=== PATIENT | male | born 1970 | race Caucasian/White ===

== ENCOUNTER 2018-12-28 08:57 | Outpatient (CLI) | payer BC, SELFPAY ==
[2018-12-28 17:07] LABS: Calculated LDL 134; Cholesterol 196 mg/dL (50-200); Glucose 78 mg/dL (70-100); HDL Cholesterol 51 mg/dL (40-60); Triglyceride 58 mg/dL (30-150)
== END 2018-12-28 09:17 ==
PROVIDERS: PCP Emergency Medicine; Visit Provider Family Medicine
DX: Z00.00 Encounter for general adult medical examination without abnormal findings (principal); Z13.220 Encounter for screening for lipoid disorders; Z13.1 Encounter for screening for diabetes mellitus
CPT/HCPCS: 36415; 80061; 82947; 83721

== ENCOUNTER 2019-01-16 14:12 | Outpatient (CLI) | payer OTHER, SELFPAY ==
--- NOTE | 2019-01-16 15:20 | DI.RAD_ITS ---
SYMPTOMS/DIAGNOSIS: ACUTE BILATERAL LOW BACK PAIN, M54.5, PAIN OVERNIGHT GOES AWAY DURING THE DAY, STARTED LAST FEB AFTER PHYSICAL LUMBOSACRAL SPINE: Five views were obtained. There is a moderate left convex lumbar scoliosis. SI joints appear fairly well maintained. Moderate hypertrophic degenerative changes noted involving vertebral endplates and facet joints throughout the lumbar region. Disc space loss noted at L3-4, L4-5 and L5-S1 with probable anterior fusion at L5-S1. There is no evidence of a fracture. CONCLUSION: Degenerative changes, no evidence of fracture.
== END 2019-01-16 14:32 ==
PROVIDERS: PCP Emergency Medicine; Visit Provider Emergency Medicine
DX: M54.5 Low back pain (principal); M51.37 Other intervertebral disc degeneration, lumbosacral region
CPT/HCPCS: 72110

== ENCOUNTER 2019-10-09 08:20 | Outpatient (CLI) | payer OTHER, SELFPAY ==
[2019-10-10 19:42] LABS: SARS-CoV-2 RNA Undetected (Undetected); SARS-CoV-2 Specimen Source Nasopharynx
== END 2019-10-09 08:40 ==
PROVIDERS: PCP Emergency Medicine; Visit Provider Family Medicine
DX: Z20.828 Contact with and (suspected) exposure to other viral communicable diseases (principal)
CPT/HCPCS: U0003

== ENCOUNTER 2019-10-16 13:37 | Emergency (ER) | payer OTHER, SELFPAY ==
[2019-10-16 13:45] VITALS: BP 158/96; PULSE 88; RESP 18; TEMP 37; O2SAT 96
[2019-10-16 13:55] VITALS: RESP 16
--- NOTE | 2019-10-16 14:15 | DI.RAD_ITS ---
EXAM: XR PORTABLE CHEST AP CLINICAL HISTORY: COugh, chest discomfort TECHNIQUE: COMPARISON: No exams were available for comparison FINDINGS: Portable AP chest was obtained. Cardiac size is within normal limits. No gross consolidation seen. No pleural effusion identified on this frontal film. There is question of very faint hazy radiodensity overlying the left mid to upper lung field, questio n very subtle increased radiodensity also present right mid to upper lung field. Faint infiltrate is not excluded and I cannot exclude the possibility of early pneumonia in this patient. If clinically appropriate follow-up films or CT may be obtained. IMPRESSION:
--- NOTE | 2019-10-16 14:16 | W.ED.GENAD ---
Discharge Plan Disposition Patient Disposition: HOME Condition: Stable Discharge Details Chief Complaint: SOB Clinical Impression: Shortness of breath Primary Care Provider: Héctor Orta ED Provider: Enzo Noland Home Meds and New Rx's Prescriptions: New prednisone 20 mg tablet 60 mg PO DAILY 4 Days Qty: 12 RF: 0 Continued alprazolam [Xanax] 0.5 MG tablet 0.5 mg PO DAILY PRNQty: 30 RF: 1 albuterol sulfate [ProAir HFA] 8.5 GM HFA aerosol inhaler 1 - 2 puff Inhalation Q4H PRN Qty: 2 RF: 6 Ketoconazole 15 GM CREAM..G. 15 gm Topical DAILY Qty: 3 RF: 3 Discharge Instructions Instructions: Dyspnea (ED) Additional Instructions: Your cat scan was normal, no pneumonia or other concerning findings and your lab work did not show any acute findings follow up with your primary care provider within a week especially if symptoms continue return to the emergency department if you feel more ill, have chest pain or pressure, or shortness of breath that is worsening Medical Decision Making <Reese Sandoval MD - Last Filed: 10/16/19 15:04> 48-year-old healthy male presents with 3 weeks of cough, congestion, intermittent episodes of chest pain and some subjective shortness of breath. He has been followed as an outpatient and had a negative coronavirus screening performed with results on October 08. He also was treated with a course of doxycycline which he is completed. He states he was beginning to feel better and then had recurrence of chest discomfort over the past day and a half for which she was referred to the ER. He arrives with unremarkable vital signs, 98% sat on room air. He is anxious and noted to have blood pressures approximately 140-150/90. Given the negative coronavirus test, I would consider his differential diagnosis to include pneumonitis, pneumonia, post bronchitic irritation, pleurisy, must exclude PE. Patient had IV access established, screening labs obtained and he was referred for chest x-ray and EKG. labs are reassuring. X-ray reveals fluffy infiltrate in the upper lung anne per Dr. Mcknight. We will obtain CT imaging in order to ascertain underlying etiology. Please see Dr. Noland's note. ECG Data Attestation: I personally reviewed and interpreted this ECG (s) as follows: Interpretation: Normal sinus rhythm with a rate of 73, the QRS is narrow, there is no ST segment elevation present. The QTC is 392. <Enzo Noland MD - Last Filed: 10/16/19 16:13> PT's CT shows no acute findings per Dr. Jackson and he remains hd stable. Do not feel abx indicated. Given his continued cough and shortness of breath will trial short course of steroids. ADvised to f/u with pcp and return precautions given Imaging Data Radiologic Study: Attestation: I personally reviewed and interpreted this imaging study as follows: Imaging: CT Scan Radiologist's impression: no acute findings per Dr. Jackson HPI <Reese Sandoval MD - Last Filed: 10/16/19 15:04> General Mode of arrival: ambulatory. Date/Time Provider Initiated Documentation: 10/16/19 13:38. Limitations to Documentation: no limitations. Information obtained by: patient. History of Present Illness 48 year old M presents to the emergency department with the chief complaint of Cough and chest discomfort for 3 weeks, described as moderate, Quality is described as dull, and is localized to the chest. Patient reports no radiation. Patient started experiencing this week(s) and it has been intermittent. No relieving factors improve symptom(s), No exacerbating factors reported . Patient notes cough and fever/chills. Patient did receive the following treatments prior to arrival, other (Finished a course of doxycycline) Related Data Home Medications Medication Instructions Recorded Confirmed albuterol sulfate [ProAir HFA] 1 - 2 puff INHALATION Q4H PRN #2 12/29/17 10/16/19 inhaler alprazolam [Xanax] 0.5 mg PO DAILY PRN #30 tab 12/29/17 10/16/19 prednisone 60 mg PO DAILY 4 Days #12 tab 10/16/19 Previous Rx's Medication Instructions Recorded albuterol sulfate [ProAir HFA] 1 - 2 puff INHALATION Q4H PRN #2 12/29/17 inhaler prednisone 60 mg PO DAILY 4 Days #12 tab 10/16/19 Allergies Allergy/AdvReac Type Severity Reaction Status Date / Time No Known Allergies Allergy Verified 10/16/19 13:55 General Stated Complaint: SOB GRISEL: 3 Review of Systems <Reese Sandoval MD - Last Filed: 10/16/19 15:04> Narrative: Finished a course of doxycycline. No definitive sick contacts. No recent travel. No leg pain or swelling. See HPI. 8 systems reviewed and otherwise negative PFSH <Reese Sandoval MD - Last Filed: 10/16/19 15:04> Surgical History (Updated 01/04/19 @ 11:03 by Héctor Orta DO) Tonsillectomy Vasectomy Family History Mother Depression Asthma Father Essential hypertension Hyperlipidemia Brother No problems noted. Brother Depression Asthma Maternal Grandfather , 72 Diabetes Heart disease Paternal Grandfather , 80 Diabetes Heart disease Maternal Grandmother , 99 Essential hypertension Breast cancer Paternal Grandmother , 88 Essential hypertension Heart disease Hyperlipidemia FAMILY HISTORY Migraine Anxiety Stroke Macular degeneration Colon cancer Bladder cancer Son No problems noted. Daughter No problems noted. Social History Smoking/Tobacco Use Status: Former Tobacco Use Quit Date: 07/12/03 Second Hand Exposure: Yes Alcohol Intake: current Alcohol Intake frequency: 0-2 drinks per day Alcohol type: beer Drug use: Occasionally Substance use type: marijuana Caregiver/Support person: No Household members: spouse and children Housing: house Communication Needs: None Do you need help understanding health information?: Never Pets and animals: Yes Pets and animals: dog(s) Sexually active: Yes Do you think of yourself as: straight/heterosexual Current gender identity: male What is your relationship status?: How often do you talk on the phone with friends or family?: three or more times per week How often do you get together with friends or relatives?: three or more times per week How often do you attend restorationist or christian services?: 1-3 times per year Do you belong to any clubs or organized social groups?: yes Panel score (0-1 are the most socially isolated patients): 3 What type of physical activity do you participate in: other Details: rowing and running Duration: 15-30 minutes/day Frequency: 5-6 times per week Isabella/Quaker: none Special isabella needs: No Seatbelt use: always Helmet use: Yes Helmet use: always Drive intox or ride w/intox delivery driver/supervisor: No Exam <Reese Sandoval MD - Last Filed: 10/16/19 15:04> Narrative Exam Narrative: GEN: awake, alert, oriented 3. Pleasant, well groomed, interactive. HEAD: Normocephalic, atraumatic ENT: Mucous membranes moist, oropharynx unremarkable, External ear exam unremarkable EYES: PERRL, EOMI NECK: Full ROM, no JILL, no menigismus CHEST/RESP: Nontender, clear to auscultation bilateral, no wheeze/rhonchi/rales CARDIOVASCULAR: RRR, no murmur, rub luigi. 2+ Rad pulse bilateral ABDOMEN: Soft, nontender, no mass. +Bowel sounds EXT: Full ROM, no edema, no rash Neuro: Grossly normal neurologic exam, conversant, interactive. Psych: Speech fluent, thoughts congruent, affect anxious Course <Reese Sandoval MD - Last Filed: 10/16/19 15:04> Vital Signs Vital signs: Vital Signs Temperature 37.0 C 10/16/19 13:45 Pulse 88 10/16/19 13:45 Respiratory Rate 18 10/16/19 13:45 Blood Pressure 158/96 H 10/16/19 13:45 Pulse Oximetry 96 10/16/19 13:45 Temperature 37.0 C 10/16/19 13:45 Temperature Source Skin 10/16/19 13:45 Pulse 88 10/16/19 13:45 Respiratory Rate 16 10/16/19 13:55 Respiratory Effort Non-Labored 10/16/19 13:55 Respiratory Depth Normal 10/16/19 13:55 Respiratory Pattern Normal 10/16/19 13:55 Blood Pressure 158/96 H 10/16/19 13:45 Blood Pressure Position Sitting 10/16/19 13:45 Pulse Oximetry 96 10/16/19 13:45 Oxygen Delivery Method Room Air 10/16/19 13:45 Oxygen Flow Rate 0 10/16/19 13:45 Pain Level 5 10/16/19 13:55 Sign Out <Reese Sandoval MD - Last Filed: 10/16/19 15:04> Sign Out Data: Sign Out Comment: Follow-up CT imaging Last updated by Reese Sandoval MD at 10/16/19 15:03
[2019-10-16 14:28] LABS: Abs Immature Grans 0.04 k/cumm (0.0-0.09); Absolute Basophil Count 0.03 k/cumm (0.0-0.2); Absolute Eosinophil Count 0.02 k/cumm (0.0-0.7); Absolute Lymphocyte Count 1.27 k/cumm (1.2-3.4); Absolute Monocyte Count 0.48 k/cumm (0.11-0.7); Absolute Neutrophil Count 3.84 k/cumm (1.2-6.7); Basophils % 0.5; Eosinophils % 0.4; HCT 45.9 % (40.0-50.0); Immature Grans % 0.7 %; Lymphocytes % 22.4; Mean Corp. HGB Concentration 34.9 g/dL (32.0-36.0); Mean Corpuscular Hemoglobin 30.7 pg (27.0-33.0); Mean Corpuscular Volume 87.9 fL (80-95); Mean Platelet Volume 10.7 fL (8.0-11.0); Monocytes % 8.5; Neutrophils % 67.5; Platelet Count 223 x1000/uL (130-400); RBC 5.22 m/cumm (4.50-6.00); RBC Distribution Width 12.6 % (11.8-14.1); White Blood Cell Count 5.68 k/cumm (4.4-10.8)
[2019-10-16 14:41] LABS: ALT 43 U/L (16-63); AST 19 U/L (15-37); Albumin 4.2 g/dL (3.4-5.0); Alkaline Phosphatase 49 U/L (46-116); Anion Gap 8.3 mmol/L (3-11); BUN 12 mg/dL (7-18); Bilirubin, Total 0.5 mg/dL (0.2-1.0); CO2 27.7 mmol/L (21.0-32.0); CREATININE 1.09 mg/dL (0.70-1.30); Calcium 9.2 mg/dL (8.5-10.1); Chloride 105 mmol/L (98-107); Glucose 98 mg/dL (74-106); Magnesium 2.1 mg/dL (1.8-2.4); Potassium 3.8 mmol/L (3.5-5.1); Sodium 141 mmol/L (136-145); Total Protein 7.4 g/dL (6.4-8.2)
[2019-10-16 14:42] LABS: Troponin I < 0.05 ng/Ml (<0.06)
[2019-10-16 15:09] LABS: D-Dimer 170 ng/mlFEU (<500)
--- NOTE | 2019-10-16 15:15 | DI.CT_ITS ---
EXAM: CT CHEST W CLINICAL HISTORY: persistent cough, question upper infiltrates on XR TECHNIQUE: COMPARISON: No exams were available for comparison FINDINGS: CT examination of the chest was performed with intravenous infusion of 100 cc of Omnipaque 350. The lungs are clear. No pulmonary embolic disease. No thoracic aortic abnormality. No mediastinal or h ilar adenopathy. No pleural effusion or pneumothorax. Images obtained through the upper abdomen show unremarkable appearance of visualized portions of live r, spleen, adrenals, kidneys, and pancreas. IMPRESSION: No evidence of acute intrapulmonary process.
[2019-10-16] MEDS: Omnipaque 350 MG/ML 100 ML BTL IJ (15:30)
[2019-10-16] MEDS: Normal Saline - Diluent 50 ML VIAL IV ×2 (15:31→15:51)
[2019-10-16 16:27] VITALS: BP 158/96; PULSE 88; RESP 16; TEMP 37; O2SAT 96
== END 2019-10-16 16:23 | disposition home or self-care (01) ==
PROVIDERS: Emergency Medicine; Emergency Provider Emergency Medicine; PCP Emergency Medicine
DX: R06.02 Shortness of breath (principal); R07.89 Other chest pain; R09.89 Other specified symptoms and signs involving the circulatory and respiratory systems
CPT/HCPCS: 80053; 93005; 99285; 71045; 71260; 83735; 84484; 85025; 85379; 93010; 99284; J3490

== ENCOUNTER 2019-11-07 00:07 | Outpatient (CLI) | payer OTHER, SELFPAY ==
--- NOTE | 2019-11-07 07:37 | DI.US_ITS ---
APPROVED REPORT EXAM: Comprehensive 2D, Doppler, and color-flow Echocardiogram Patient Location: Out-Patient Vocational Nurse: Esther Nix RDCS (AE) Indications: Dyspnea on exertion, Ventricular arrhythmia Other Information Study Quality: Good Conclusion Left Ventricle : The left ventricle is normal size. The left ventricular systolic function is normal. The left ventricular ejection fraction is within the normal range. There is normal left ventricular wall thickness. There is normal LV segmental wall motion. The left ventricular diastolic function is normal. LVEF is 55-60%. Right Ventricle : The right ventricle is normal size. The right ventricular systolic function is norm al. The RVSP is 18 mmHg. Atria : The left atrium size is normal. The right atrium size is normal. Valves: There are no hemodynamically significant valvular lesions. Great Vessels : IVC is normal in size and collapses >50% with inspiration. There is no prior echocardiogram available for comparison Wall motion Left Ventricle The left ventricle is normal size. The left ventricular systolic function is normal. The left ventric ular ejection fraction is within the normal range. There is normal left ventricular wall thickness. T here is normal LV segmental wall motion. The left ventricular diastolic function is normal. There is no ventricular septal defect visualized. LVEF is 55-60%. Right Ventricle The right ventricle is normal size. The right ventricular systolic function is normal. The RVSP is 18 mmHg. Atria The left atrium size is normal. The right atrium size is normal. The interatrial septum is intact wit h no evidence for an atrial septal defect. Aortic Valve The aortic valve is normal in structure. There is no aortic valvular stenosis. No aortic regurgitatio n is present. Mitral Valve The mitral valve is normal in structure. No evidence of mitral valve stenosis. Trace mitral regurgita tion. Tricuspid Valve The tricuspid valve is normal in structure. There is no tricuspid valve stenosis. Trace tricuspid reg urgitation. Pulmonic Valve The pulmonary valve is normal in structure. There is no pulmonic valvular stenosis. Trace pulmonic re gurgitation. Great Vessels The aortic root is normal in size. The ascending aorta is normal in size. Aortic arch is normal in ca liber. IVC is normal in size and collapses >50% with inspiration. Pericardium There is no pericardial effusion. There is no pleural effusion. 2D Dimensions IVSD d PLAX 0.90 cm M: 0.6-1.2 LV Vol A2C d MOD 110.3 mL LVPW d PLAX 0.96 cm M: 0.6 - 1.2 LV Vol A4C d MOD 111.7 mL LVID d PLAX 4.95 cm M: 4.2 - 5.8 LV Mass 168.35 g M: 88 - 224 LVDs 3.55 cm M: 2.5 - 4.0 LV Mass Index 85.02 g/m2 M: 49 - 115 Ao Root d 2.98 cm M: 3.1 - 3.7 LA vol/ BSA A2C s A-L 26.1 mL/m2 RA Area A4C 12.54 cm2 LA vol/ BSA A4C s A-L 22.7 mL/m2 RA Vol/ BSA A4C s A-L 15.0 mL/m2 LA Vol/ BSA Biplane s A-L 24.6 mL/m2 Ao Asc Diam d 3.21 cm M: 2.6 - 3.4 LA Area A4C s MOD 15.84 cm2 IVS 0.90 cm LA Area A2C s MOD 16.82 cm2 LV EF Teichholz 54.0 % LV EF A4C MOD 56.4 % LVEF (Carmona's) 53.43 % M: 52 - 72 LV EF A2C MOD 55.2 % LV Volume 83.64 mL M: 62 - 150 LV EF Biplane MOD 53.4 % LV Volume Index 42.24 mL/m2 M: 34 - 74 LV Vol Biplane MOD 111.2 mL M-Mode TAPSE 2.93 cm (M/F) >1.7 LV Diastology E Decel Time 206.00 (160-240 msec) E/A Ratio 1.2 MV E' medial 0.126 (>0.07 m/s) MV E Vmax 0.72 (0.4-1.3 m/s) LV E/e MED 5.65 (<14) MV A Vmax 0.60 (0.4-1.3 m/s) MV E' lateral 0.151 (>0.1 m/s) MV E/A Ratio 1.10 LV E/e LAT 4.75 (<14) MV E/E' medial 5.68 MV E/E' lateral 4.76 E Peak Velocity 0.72 m/s A Peak Velocity 0.65 m/s Aortic Valve LVOT Area 3.06 cm2 AoV Area Vmax 2.68 cm2 LVOT Vmax 1.13 m/s AoV Area/ BSA (Vmax) 1.35 cm2/m2 LVOT Mean Josse. 0.71 m/s BLANCA Mean Josse. 2.19 cm2 LVOT Peak Grad 5.1 mmHg BLANCA Mean Josse. Index 1.10 cm2/m2 LVOT Mean Grad 2.4 mmHg LVOT VTI 0.227 m LVOT Diam s 1.95 cm (M/F) 1.5-2.5 AoV Vmax 1.29 (0.5-1.3 m/s) Velocity Ratio 0.87 AoV Mean Josse. 0.99 m/s AoV Peak Grad 6.6 mmHg LVOT SV 69.53 mL AoV Mean Grad 4.2 (<5 mmHg) AoV VTI 0.247 (0.18-0.25 m) AoV Area VTI 2.82 (2.5-4.5 cm2) AoV Area/ BSA (VTI) 1.42 cm/m2 Mitral Valve MV DT 206 (160-240 msec) MV PHT 60 msec MV Area PHT 3.69 cm2 Pulmonary Valve PV Vmax 1.19 (0.5-1.5 m/s) RVOT Peak Gr. 1.66 mmHg PV Peak Grad 5.6 mmHg RVOT Mean Gr. 0.70 mmHg PV Mean Grad 2.9 mmHg RVOT VTI 0.127 m PV VTI 0.259 m RVOT Vmax 0.64 m/s Tricuspid Valve TR Peak Grad 15.0 mmHg TR Vmax 1.94 m/s RA Pressure 3.00 mmHg RVSP (TR) 18.0 mmHg
--- NOTE | 2019-11-07 09:00 | ETT_ITS ---
APPROVED REPORT Exam: Exercise Treadmill Patient Location: Out-Patient Room/Bed: Stress Nurse: Johana Cabrales RN BMI: 25.39 Baseline Rhythm: Sinus Rhythm Indications: Patient reports having a ???bad respiratory illness??? in mid-September. Since then he has b een experiencing intermittent midsternal chest pressure (6/10 at its worst) palpitations and SOB ???i n surges???. He reports SOB with going up stairs which is unusual for him as he is a very active pers on. Medical History Cardiac Medications: None, Allergies: Environmental, Scents Cardiac Risk Factors: FHX of CAD, Asthma Previous Cardiac Procedures: None Pretest Chest Pain Characteristics: Chest Tightness (3/10) Exercise History: Physically active Physical Disabilities: None Lung Sounds: Clear to auscultation Heart Sounds: Regular Stress Test Details Test: Exercise stress testing was performed using a Gurwinder protocol. Rest Stress HR Resting HR Supine: 72 bpm Max Heart Rate (APMHR): 173 bpm Resting HR Standin bpm Target HR (85% APMHR): 147 bpm Max HR Achieved: 176 bpm % of APMHR: 101 HR response to stress: Normal HR response to stress BP Resting BP Supine: 134/80 mmHg Resting BP Standin/78 mmHg Max BP: 160/70 mmHg BP response to stress: Normal blood pressure response to stress. ECG Resting ECG: Sinus Rhythm Stress ECG: No significant ST segment changes ST Change: Normal Arrhythmia: None Recovery ECG: Sinus Rhythm Recovery ST Change: Normal Recovery Arrhythmia: None Clinical Reason for Termination: Fatigue Stress Symptoms: None Exercise duration: 14 min56 sec Highest Stage Reached: Stage 5: 5.0 mph at 18% grade. Exercise capacity: 14.86 METs Functional Capacity: Above average capacity Functional Aerobic Impairment 72% Stress ECG Conclusion 1. The patient exercised for 15 minutes (15 minutes). Rate-pressure product was 26,000. 2. Patient no symptoms suggestive of ischemia. 3. There is no evidence of ischemia on the ECG portion of the exam. 4. The Munguia Score (13) estimates an annual cardiovascular mortality of 0% and a five year survival of 96%. Using the Munguia Score there is a low probability of any angiographic coronary disease. Stress Test Summary STAGE Time (mins) Speed (mph) Grade (%) HR BP SYMPTOMS METS Supine 72 134/80 Standing 76 130/78 1 3 1.7 10 108 138/78 4.6 2 6 2.5 12 121 140/78 7 3 9 3.4 14 132 146/76 10.2 4 12 4.2 16 145 152/74 12.9 1 min recovery 160 160/70 3 min recovery 105 152/74 6 min recovery 104 146/78 9 min recovery 101 144/80
== END 2019-11-07 00:27 ==
PROVIDERS: PCP Emergency Medicine; Visit Provider Emergency Medicine
DX: R06.09 Other forms of dyspnea (principal); I47.0 Re-entry ventricular arrhythmia; R07.89 Other chest pain; R00.2 Palpitations; R06.02 Shortness of breath; Z82.49 Family history of ischemic heart disease and other diseases of the circulatory system
CPT/HCPCS: 93017; 93306

== ENCOUNTER 2019-11-07 01:00 | Outpatient (CLI) | payer OTHER, SELFPAY ==
[2019-11-07 09:19] LABS: ESR 3 mm/hr (0-15)
[2019-11-07 09:31] LABS: C-Reactive Protein 0.06 mg/dL (0.0-0.3); NT-proBNP 18 pg/mL (<300)
== END 2019-11-07 01:20 ==
PROVIDERS: PCP Emergency Medicine; Visit Provider Emergency Medicine
DX: R06.09 Other forms of dyspnea (principal); I50.9 Heart failure, unspecified
CPT/HCPCS: 36415; 85652; 83880; 86140

== ENCOUNTER 2019-11-07 01:08 | Outpatient (CLI) | payer OTHER, SELFPAY | END 2019-11-07 01:28 | PROVIDERS: PCP Emergency Medicine; Visit Provider Emergency Medicine | DX: R06.09 Other forms of dyspnea (principal) | CPT/HCPCS: 93225 ==

== ENCOUNTER 2019-11-09 08:30 | Outpatient (CLI) | payer OTHER, SELFPAY ==
--- NOTE | 2019-11-09 09:34 | W.HOLTRPT ---
Date of service: 11/09/19 Time of Service: 09:34 Holter Monitor Report Holter Monitor Note: This is a 48-hour Holter monitor ordered for the indication of dyspnea on exertion. ?Patient was in normal sinus rhythm for the majority of the recording. Average heart rate was 73 bpm (57?117) ?There were no episodes of supraventricular tachycardia and rare PACs. ?There were no episodes of ventricular tachycardia and rare (0.1%) single ventricular ectopic beats. ?There were no episodes of atrial fibrillation, no pauses greater than 3 seconds and no evidence of high degree heart block. ?There were no patient triggered events.
== END 2019-11-09 08:50 ==
PROVIDERS: PCP Emergency Medicine; Visit Provider Emergency Medicine
DX: R06.09 Other forms of dyspnea (principal)
CPT/HCPCS: 93226

== ENCOUNTER 2019-11-24 13:57 | Outpatient (CLI) | payer OTHER, SELFPAY ==
--- NOTE | 2019-11-24 14:00 | DI.RAD_ITS ---
EXAM: XR CHEST 2V PA LATERAL CLINICAL HISTORY: DYSPNEA ON EXERTION, R06.00 TECHNIQUE: COMPARISON: CR XR PORTABLE CHEST AP from 10/16/2019 FINDINGS: There is a mild biconvex thoracolumbar scoliosis. Heart is not enlarged. Lungs are clear and normal ly expanded. No pleural effusion seen. IMPRESSION: Negative examination of the chest.
== END 2019-11-24 14:17 ==
PROVIDERS: PCP Emergency Medicine; Visit Provider Emergency Medicine
DX: R06.09 Other forms of dyspnea (principal)
CPT/HCPCS: 71046

== ENCOUNTER 2019-11-27 02:33 | Outpatient (CLI) | payer OTHER, SELFPAY ==
[2019-11-27 12:54] LABS: Abs Immature Grans 0.03 k/cumm (0.0-0.09); Absolute Basophil Count 0.05 k/cumm (0.0-0.2); Absolute Eosinophil Count 0.07 k/cumm (0.0-0.7); Absolute Lymphocyte Count 1.76 k/cumm (1.2-3.4); Absolute Monocyte Count 0.61 k/cumm (0.11-0.7); Absolute Neutrophil Count 3.73 k/cumm (1.2-6.7); Basophils % 0.8; Eosinophils % 1.1; HCT 46.3 % (40.0-50.0); Immature Grans % 0.5 %; Lymphocytes % 28.2; Mean Corp. HGB Concentration 34.6 g/dL (32.0-36.0); Mean Corpuscular Hemoglobin 30.6 pg (27.0-33.0); Mean Corpuscular Volume 88.5 fL (80-95); Mean Platelet Volume 10.8 fL (8.0-11.0); Monocytes % 9.8; Neutrophils % 59.6; Platelet Count 225 x1000/uL (130-400); RBC 5.23 m/cumm (4.50-6.00); RBC Distribution Width 12.5 % (11.8-14.1); White Blood Cell Count 6.25 k/cumm (4.4-10.8)
[2019-11-27 13:37] LABS: ESR 3 mm/hr (0-15)
[2019-11-27 13:44] LABS: ALT 39 U/L (16-63); AST 24 U/L (15-37); Albumin 4.3 g/dL (3.4-5.0); Alkaline Phosphatase 64 U/L (46-116); BUN 12 mg/dL (7-18); Bilirubin, Total 0.6 mg/dL (0.2-1.0); C-Reactive Protein 0.05 mg/dL (0.0-0.3); CREATININE 1.08 mg/dL (0.70-1.30); Calcium 9.2 mg/dL (8.5-10.1); Chloride 103 mmol/L (98-107); D-Dimer 275 ng/mlFEU (<500); Glucose 96 mg/dL (74-106); Potassium 4.3 mmol/L (3.5-5.1); Sodium 140 mmol/L (136-145); Total Protein 7.3 g/dL (6.4-8.2)
== END 2019-11-27 02:53 ==
PROVIDERS: PCP Emergency Medicine; Visit Provider Emergency Medicine
DX: R06.00 Dyspnea, unspecified (principal)
CPT/HCPCS: 36415; 80053; 85652; 85025; 85379; 86140

== ENCOUNTER 2019-11-27 09:30 | Outpatient (CLI) | payer OTHER, SELFPAY ==
[2019-11-28 18:04] LABS: COVID-19 RT-PCR Result NEGATIVE (Negative)
== END 2019-11-27 09:50 ==
PROVIDERS: PCP Emergency Medicine; Visit Provider Emergency Medicine
DX: R06.00 Dyspnea, unspecified (principal)
CPT/HCPCS: U0003

== ENCOUNTER 2020-01-10 04:19 | Outpatient (CLI) | payer BC, SELFPAY ==
[2020-01-10 11:25] LABS: Ferritin 175 ng/mL (26-388)
[2020-01-10 11:29] LABS: ESR 3 mm/hr (0-15)
[2020-01-10 11:40] LABS: C-Reactive Protein 0.07 mg/dL (0.0-0.3)
[2020-01-11 15:25] LABS: ANA Interpretation Negative (Negative)
== END 2020-01-10 04:39 ==
PROVIDERS: PCP Emergency Medicine; Visit Provider Emergency Medicine
DX: E03.9 Hypothyroidism, unspecified (principal); R06.00 Dyspnea, unspecified; M25.50 Pain in unspecified joint
CPT/HCPCS: 36415; 85652; 82728; 84443; 86038; 86140

== ENCOUNTER 2021-04-10 15:16 | Outpatient (CLI) | payer BC, SELFPAY ==
--- NOTE | 2021-04-10 15:15 | RT.EKG_ITS ---
APPROVED REPORT Exam: Resting ECG Reason for Exam: chest discomfort Patient Location: O HR:60 bpm ECG Measurements Heart Rate 60 AXIS SD 188 P 4 QRSd 95 QRS -16 QT 403 T 22 QTc 391 Conclusion Sinus bradycardia...rate< 60 Normal Electrocardiogram
== END 2021-04-10 15:17 | disposition home or self-care (01) ==
PROVIDERS: PCP Emergency Medicine; Visit Provider Emergency Medicine
DX: R07.9 Chest pain, unspecified (principal)
CPT/HCPCS: 93010

== ENCOUNTER 2021-04-10 18:41 | Outpatient (REF) | payer BC, SELFPAY ==
[2021-04-12 10:52] LABS: COVID-19 RT-PCR UVMMC Result Negative (Negative)
== END 2021-04-10 18:42 | disposition home or self-care (01) ==
LOC: LBN 18:41
PROVIDERS: PCP Emergency Medicine; Visit Provider Emergency Medicine
DX: Z20.822 Contact with and (suspected) exposure to COVID-19 (principal); J06.9 Acute upper respiratory infection, unspecified; R06.02 Shortness of breath; R00.2 Palpitations
CPT/HCPCS: U0003

== ENCOUNTER 2021-05-28 11:23 | Outpatient (CLI) | payer OTHER, BC, SELFPAY ==
--- NOTE | 2021-05-28 11:15 | DI.RAD_ITS ---
Exam(s) XR SHOULDER RT COMPLETE 2+V EXAM: XR SHOULDER RT COMPLETE 2+V CLINICAL HISTORY: right shoulder pain TECHNIQUE: COMPARISON: No exams were available for comparison FINDINGS: Two views were obtained. The cartilaginous joint space of the glenohumeral joint appears fairly main tained. No bony or soft tissue abnormality seen. IMPRESSION: RADIATION DOSE DELIVERED: Total DLP
== END 2021-05-28 11:24 | disposition home or self-care (01) ==
LOC: DIORS 11:24
PROVIDERS: PCP Emergency Medicine; Referring Provider Emergency Medicine; Visit Provider Physician Assistant
DX: M25.511 Pain in right shoulder (principal)
CPT/HCPCS: 73030

== ENCOUNTER → 2021-06-19 02:17 | Outpatient (CLI) | payer OTHER, SELFPAY ==
--- NOTE | 2021-06-19 07:00 | DI.MRI_ITS ---
Exam(s) MR UPPER JOINT RT WO EXAM: MR UPPER JOINT RT WO CLINICAL HISTORY: PAINFUL R SHOULDER,rt rotator cuff tear,bursitis, ,75.51,m75.101,m25.511 TECHNIQUE: Multiplanar multisequence MRI of the shoulder was performed. COMPARISON: CR XR SHOULDER RT COMPLETE 2+V from 05/28/2021 FINDINGS: MARROW:There is no evidence of fracture, Hill-Sachs deformity, bony Bankart lesion, nor ominous osseo us lesions. ROTATOR CUFF MECHANISM: AC JOINT/ACROMIUM: There are minimal degenerative changes in the AC joint. No downgoing osteophytes. The undersurface of the acromion is flat. There is no undersurface impingement hook. No obvious e nthesopathy within the coracoid all acromial ligament. There is no evidence of os acromiale. Supraspinatus: Intact. No significant tendinitis/tendinosis. No evidence of tear nor muscle atrophy . Infraspinatus: Intact. No evidence of tear nor muscle atrophy. Teres Minor: Abnormal. Partial tearing of the muscle/musculotendinous junction is evident. Subscapularis/anterior cuff: There is some abnormal signal seen within the multipennate tendon fibers of the subscapularis, consistent with tendinitis this level. BICEPS TENDON: Normally position in the intertubercular groove. No evidence of tear. No tenosynovitis. LABRUM: Superior labrum appears intact. Posterior labrum appears intact. Inferior labrum appears in tact. There is small sys surface tear in the anterior labrum. No evidence of paralabral cyst. GLENOHUMERAL JOINT: No joint effusion nor obvious loose intra-articular bodies. No chondral defects. No osteophytes. Single tiny degenerative subarticular cysts on the posterior lateral aspect of the humeral head. No evidence of capsular tear. The inferior glenohumeral ligament is intact. QUADRILATERAL SPACE: No evidence of mass in the region of the axillary nerve and dorsal circumflex hu meral vessels. Visualized triceps muscle at this level appears unremarkable. IMPRESSION: 1. No evidence of significant abnormality in the supraspinatus and infraspinatus components of the ro tator cuff mechanism. 2. There is partial tearing at the musculotendinous junction of the teres minor, posteriorly. There is also an some tendinitis signal evident in the most superior of the multipennate insertional fibers of the subscapularis-anterior cuff. 3. Small tear in the anterior labrum. No paralabral cyst. Biceps tendon is intact. DATA REPOSITORY:
== END ==
PROVIDERS: PCP Emergency Medicine; Visit Provider Student in an Organized Health Care Education/Training Program
DX: M25.511 Pain in right shoulder (principal); M75.101 Unspecified rotator cuff tear or rupture of right shoulder, not specified as traumatic; M75.51 Bursitis of right shoulder; M75.81 Other shoulder lesions, right shoulder; S43.431A Superior glenoid labrum lesion of right shoulder, initial encounter; X58.XXXA Exposure to other specified factors, initial encounter
CPT/HCPCS: 73221

== ENCOUNTER 2021-07-15 19:05 | Outpatient (REF) | payer BC, SELFPAY ==
[2021-07-15 22:51] LABS: PSA, Screening 0.5 ng/mL (0.0-2.5)
== END 2021-07-15 19:06 | disposition home or self-care (01) ==
LOC: LBN 19:05
PROVIDERS: PCP Family Medicine; Visit Provider Emergency Medicine
DX: Z12.5 Encounter for screening for malignant neoplasm of prostate (principal)
CPT/HCPCS: 84153

== ENCOUNTER → 2021-10-29 01:44 | Outpatient (CLI) | payer BC, SELFPAY ==
[2021-10-29 08:48] LABS: Anion Gap 6.9 mmol/L (3-11); BUN 18 mg/dL (7-18); CO2 26.1 mmol/L (21.0-32.0); CREATININE 1.1 mg/dL (0.70-1.30); Calcium 8.8 mg/dL (8.5-10.1); Chloride 105 mmol/L (98-107); Glucose 115 mg/dL (74-106); Potassium 3.8 mmol/L (3.5-5.1); Sodium 138 mmol/L (136-145)
[2021-10-29] MEDS: Breeza Beverage 473 ML BTL PO (10:18)
[2021-10-29] MEDS: Omnipaque 350 MG/ML 50 ML BTL PO (10:19)
[2021-10-29] MEDS: Omnipaque 350 MG/ML 100 ML BTL IJ (10:19)
--- NOTE | 2021-10-29 10:20 | DI.CT_ITS ---
Exam(s) CT ABDOMEN PELVIS W EXAM: CT ABDOMEN PELVIS W CLINICAL HISTORY: RLQ pain,R10.31 TECHNIQUE: COMPARISON: CT CT CHEST W from 10/16/2019 FINDINGS: CT examination of the abdomen and pelvis was performed with bolus infusion of 100 cc of Omnipaque 350 . Images obtained through the lung bases are unremarkable except for a 5 millimeter mean diameter rig ht lower lobe pulmonary nodule, this is unchanged in appearance comparison with prior chest CT of Oct.. The liver appears normal with no evidence of a focal mass. Spleen is unremarkable in appearance.. Gallbladder and bile ducts are unremarkable. Pancreas is unremarkable in appearance. Adrenals appear normal bilaterally. Kidneys appear normal with no evidence of renal mass, hydronephrosis, or nephrolithiasis. Unremarkab le bladder. There is no evidence of abdominal or pelvic adenopathy. Abdominal aorta is of normal diameter and no abnormality is seen involving major visceral branches.. Appendix is normal. No evidence diverticulitis or bowel obstruction. No significant abdominal wall hernia seen. Impression: Negative CT examination of the abdomen and pelvis. RADIATION DOSE DELIVERED: 998.35mGy.cm Total DLP 998.35mGy.cm Total DLP !Error CTDIvol DATA REPOSITORY: All CT scans at this facility are submitted to the National Radiology Data Registry (NRDR) Dose Index Registry (DIR) with the [employer] (A[employer]). RADIATION OPTIMIZATION: All CT scans at this facility use at least one of these dose optimization te chniques: automated exposure control; mA and/or kV adjustment per patient size (includes targeted exa ms where dose is matched to clinical indication); or iterative reconstruction.
[2021-10-29 10:38] LABS: Bilirubin Negative (Negative); Blood Negative (Negative); Clarity Clear (Clear); Glucose Negative (Negative); Ketones Negative (Negative); Leukocyte Esterase Negative (Negative); Nitrite Negative (Negative); Specific Gravity 1.025 (1.005-1.025); Urobilinogen 0.2 EU/dL (Up TO 0.2); pH 5.5 (5-8)
== END ==
PROVIDERS: PCP Family Medicine; Visit Provider Emergency Medicine
DX: R10.31 Right lower quadrant pain (principal); R91.1 Solitary pulmonary nodule
CPT/HCPCS: 80048; 74177; 81003; J3490; Q9967

== ENCOUNTER 2023-09-15 04:54 | Outpatient (CLI) | payer OTHER, SELFPAY ==
[2023-09-15 17:32] LABS: ALT 49 U/L (16-63); AST 24 U/L (15-37)
== END 2023-09-15 04:55 | disposition home or self-care (01) ==
LOC: LBO 04:54
PROVIDERS: Dermatology; PCP Family Medicine; Visit Provider Family Medicine
DX: Z79.899 Other long term (current) drug therapy (principal)
CPT/HCPCS: 36415; 84450; 84460

== ENCOUNTER 2024-01-31 10:56 | Outpatient (CLI) | payer OTHER, SELFPAY ==
[2024-01-31 10:51] LABS: Calculated LDL 140 mg/dL (<100); Cholesterol 205 mg/dL (<200); HDL Cholesterol 53 mg/dL (40-60); Triglyceride 64 mg/dL (<150)
[2024-01-31 18:09] LABS: PSA, Screening 0.4 ng/mL (<=3.5)
== END 2024-01-31 10:57 | disposition home or self-care (01) ==
LOC: LBO 10:57
PROVIDERS: PCP Family Medicine; Visit Provider Family Medicine
DX: Z13.6 Encounter for screening for cardiovascular disorders (principal); Z12.5 Encounter for screening for malignant neoplasm of prostate
CPT/HCPCS: 36415; 80061; 84153

== ENCOUNTER 2025-02-20 13:04 | Outpatient (CLI) | payer OTHER, SELFPAY ==
[2025-02-20 10:13] LABS: Anion Gap 4.9 mmol/L (3-11); BUN 14 mg/dL (7-18); CO2 30.1 mmol/L (21.0-32.0); Calcium 9.0 mg/dL (8.5-10.1); Chloride 106 mmol/L (98-107); Estimated GFR 80.27 (mL/min/1.73m2); Glucose 111 mg/dL (74-106); Potassium 4.1 mmol/L (3.5-5.1); Sodium 141 mmol/L (136-145)
[2025-02-20 12:06] LABS: Iron 94 ug/dL (65-175); Total Iron Binding Capacity 353 ug/dL (250-450); Transferrin Sat 27 % (20-55)
[2025-02-20 12:18] LABS: Ferritin 161 ng/mL (26-388)
[2025-02-20 22:03] LABS: HIV-1/2 Ag & Ab Screen Negative (Negative)
[2025-02-21 16:05] LABS: Hepatitis C Ab w Rflx HCV PCR Negative (Negative)
== END 2025-02-20 13:05 | disposition home or self-care (01) ==
LOC: LBO 13:04
PROVIDERS: PCP Family Medicine; Visit Provider Family Medicine
DX: Z11.59 Encounter for screening for other viral diseases (principal); Z11.4 Encounter for screening for human immunodeficiency virus [HIV]; G25.81 Restless legs syndrome; Z13.1 Encounter for screening for diabetes mellitus
CPT/HCPCS: 36415; 80048; 86803; 87389; 82728; 83540; 83550